=== PATIENT | female | born 2000 | race Caucasian/White ===

== ENCOUNTER 2018-02-26 15:10 | Observation (INO) | payer OTHER ==
[2018-02-26] MEDS ORDERED: ONDANSETRON HCL IV 4 MG/2 ML VIAL IV ONE (15:31)
[2018-02-26] MEDS ORDERED: 0.9 % SODIUM CHLORIDE 1,000 ML BAG IV ONE (15:31)
[2018-02-26 15:48] LABS: BASO % 0.2 % (0-6); EOS % 0.8 % (0-6); GRAN % 76.6 % (47-80); HEMOGLOBIN 10.6 gm/dl (11.6-16.0); LYMPH % 16.5 % (16-45); MEAN CELL VOLUME 91.9 fl (81-97); MEAN CORPUSCULAR HEMOGLOBIN 28.6 pg (27-33); MEAN CORPUSCULAR HGB CONC 31.2 g/dl (32-36); MEAN PLATELET VOLUME 10.3 fl (7.4-10.4); MONO % 5.9 % (0-9); PLATELET COUNT 308 K/uL (130-400); RED CELL DISTRIBUTION WIDTH 15.5 % (11.5-14.5); URINE APPEARANCE CLEAR; URINE BILIRUBIN NEGATIVE (NEGATIVE); URINE BLOOD NEGATIVE (NEGATIVE); URINE COLOR YELLOW; URINE GLUCOSE (UA) NEGATIVE (NEGATIVE); URINE KETONE NEGATIVE (NEGATIVE); URINE LEUKOCYTE ESTERASE NEGATIVE (NEGATIVE); URINE NITRITE NEGATIVE (NEGATIVE); URINE PROTEIN NEGATIVE (NEGATIVE); URINE UROBILINOGEN 0.2 E.U./dL (0.20 - 1.00); WHITE BLOOD COUNT W/O DIFF 12.7 K/uL (4.2-12.2)
[2018-02-26 15:59] LABS: BLOOD UREA NITROGEN 9 mg/dL (6-20); CREATININE 0.9 mg/dL (0.5-0.9)
[2018-02-26 16:00] LABS: TOTAL PROTEIN 7.1 g/dL (6.6-8.7)
[2018-02-26 16:02] LABS: GLUCOSE,RANDOM 85 mg/dL (74-109)
--- NOTE | 2018-02-26 16:03 | Emergency Department Record ---
History of Present Illness - General Chief Complaint: Abdominal Pain Stated Complaint: ABDOMINAL PAIN,NAUSEA, Time Seen by Provider: 02/26/18 15:25 Source: Patient, Family Mode of Arrival: Ambulatory Limitations: No limitations - History of Present Illness Initial Comments: pt had anorexia and nausea last night, then today developed rlq pain and vomited. pain gets worse w walking and eating Complaint: Abdominal pain Onset/Timin -: Days(s) Location: RLQ Severity: Moderate Severity scale (1-10): 7 Quality: Aching Consistency: Constant, Getting worse Improves With: Nothing Worsens With: Eating, Movement Associated Symptoms: Anorexia, Nausea, Vomiting - Related Data LMP (females 10-50): Last week Allergies Allergy/AdvReac Type Severity Reaction Status Date / Time nut - unspecified Allergy ANAPHYLAXIS Verified 02/26/18 15:42 Penicillins Allergy RASH Verified 02/26/18 15:42 Travel Screening - Travel/Exposure Within Last 30 Days Have you traveled within the last 30 days?: No - Travel/Exposure Within Last Year Have you traveled outside the [place] in the last year?: No - Additonal Travel Details Have you been exposed to anyone with a communicable illness?: No - Travel Symptoms Symptom Screening: None Review of Systems Reviewed: No additional complaints except as noted below Constitutional: Reports: As per HPI. Denies: Chills, Fever, Malaise, Night sweats, Weakness, Weight change Eyes: Reports: As per HPI. Denies: Eye discharge, Eye pain, Photophobia, Vision change ENT: Reports: As per HPI. Denies: Congestion, Dental pain, Ear pain, Epistaxis , Hearing loss, Throat pain Respiratory: Reports: As per HPI. Denies: Cough, Dyspnea, Hemoptysis, Stridor, Wheezes Cardiovascular: Reports: As per HPI. Denies: Arrhythmia, Chest pain, Dyspnea on exertion, Edema, Murmurs, Orthopnea, Palpitations, Paroxysmal nocturnal dyspnea, Rheumatic Fever, Syncope Endocrine: Reports: As per HPI. Denies: Fatigue, Heat or cold intolerance, Polydipsia, Polyuria Gastrointestinal: Reports: As per HPI. Denies: Abdominal pain, Constipation, Diarrhea, Hematemesis, Hematochezia, Melena, Nausea, Vomiting Genitourinary: Reports: As per HPI. Denies: Abnormal menses, Discharge, Dyspareunia, Dysuria, Frequency, Hematuria, Incontinence, Retention, Urgency Musculoskeletal: Reports: As per HPI. Denies: Arthralgia, Back pain, Gout, Joint swelling, Myalgia, Neck pain Skin: Reports: As per HPI. Denies: Bruising, Change in color, Change in hair/ nails, Lesions, Pruritus, Rash Neurological: Reports: As per HPI. Denies: Abnormal gait, Confusion, Headache, Numbness, Paresthesias, Seizure, Tingling, Tremors, Vertigo, Weakness Psychiatric: Reports: As per HPI. Denies: Anxiety, Auditory hallucinations, Depression, Homicidal thoughts, Suicidal thoughts, Visual hallucinations Hematological/Lymphatic: Reports: As per HPI. Denies: Anemia, Blood Clots, Easy bleeding, Easy bruising, Swollen glands Past Medical History - SOCIAL HISTORY Smoking Status: Never smoker Alcohol Use: None Drug Use: None - RESPIRATORY Hx Respiratory Disorders: No - CARDIOVASCULAR Hx Cardio Disorders: No - NEURO Hx Neuro Disorders: No - GI Hx GI Disorders: No - Hx Genitourinary Disorders: No - ENDOCRINE Hx Endocrine Disorders: No - MUSCULOSKELETAL Hx Musculoskeletal Disorders: No - PSYCH Hx Psych Problems: No - HEMATOLOGY/ONCOLOGY Hx Hematology/Oncology Disorders: No Family Medical History Any Significant Family History?: Yes Physical Exam - General General Appearance: Alert, Oriented x3, Cooperative, Mild distress - Head Head exam: Normal inspection - Eye Eye exam: Normal appearance, PERRL, EOMI Pupils: Normal accommodation - ENT ENT exam: Normal exam, Mucous membranes moist, Normal external ear exam, Normal orophraynx Ear exam: Normal external inspection. negative: External canal tenderness Nasal Exam: Normal inspection. negative: Discharge, Sinus tenderness Mouth exam: Normal external inspection, Tongue normal Teeth exam: Normal inspection. negative: Dental caries Throat exam: Normal inspection. negative: Tonsillar erythema, Tonsillar exudate - Neck Neck exam: Normal inspection, Full ROM. negative: Tenderness - Respiratory Respiratory exam: Normal lung sounds bilaterally. negative: Respiratory distress - Cardiovascular Cardiovascular Exam: Regular rate, Normal rhythm, Normal heart sounds - GI/Abdominal GI/Abdominal exam: Soft, Normal bowel sounds, Tenderness (rlq) - Rectal Rectal exam: Deferred - exam: Deferred - Extremities Extremities exam: Normal inspection, Full ROM, Normal capillary refill. negative: Tenderness - Back Back exam: Reports: Normal inspection, Full ROM. Denies: Muscle spasm, Rash noted, Tenderness - Neurological Neurological exam: Alert, CN II-XII intact, Normal gait, Oriented X3 - Psychiatric Psychiatric exam: Normal affect, Normal mood - Skin Skin exam: Dry, Intact, Normal color, Warm Course Vital Signs 02/26/18 15:13 Temperature 98.3 F Pulse Rate 100 H Respiratory 20 Rate Blood Pressure 138/85 Pulse Ox 97 Medical Decision Making - Lab Data Result diagrams: 02/26/18 15:40 02/26/18 15:40 Lab Results 02/26/18 02/26/18 Range/Units 15:40 15:40 WBC 12.7 H (4.2-12.2) K/uL RBC 3.70 L (3.80-5.40) M/uL Hgb 10.6 L (11.6-16.0) gm/dl Hct 34.0 L (35.0-47.0) % MCV 91.9 (81-97) fl MCH 28.6 (27-33) pg MCHC 31.2 L (32-36) g/dl RDW 15.5 H (11.5-14.5) % Plt Count 308 (130-400) K/uL MPV 10.3 (7.4-10.4) fl Gran % 76.6 (47-80) % Lymphocytes % 16.5 (16-45) % Monocytes % 5.9 (0-9) % Eosinophils % 0.8 (0-6) % Basophils % 0.2 (0-6) % Urine Color Yellow Urine Appearance Clear Urine pH 6.0 (5.0-8.0) Ur Specific [place] 1.020 (1.002-1.030) Urine Protein Negative (NEGATIVE) Urine Glucose (UA) Negative (NEGATIVE) Urine Ketones Negative (NEGATIVE) Urine Blood Negative (NEGATIVE) Urine Nitrite Negative (NEGATIVE) Urine Bilirubin Negative (NEGATIVE) Urine Urobilinogen 0.2 (0.20 - 1.00) E.U./dL Ur Leukocyte Esterase Negative (NEGATIVE) Disposition Disposition: Admit Clinical Impression: Acute appendicitis Qualifiers: Acute appendicitis type: unspecified acute appendicitis type Qualified Code(s) : K35.80 - Unspecified acute appendicitis Disposition: Still a Patient at [facility] Decision to Admit: Admit from ER Decision to Admit Date: 02/26/18 Decision to Admit Time: 19:55 Forms: Patient Portal Access Quality - Blood Pressure Screening Does Patient Have Any of the Following: No Blood Pressure Classification: Pre-Hypertensive BP Reading Systolic Measurement: 138 Diastolic Measurement: 85 Screening for High Blood Pressure: < Pre-Hypertensive BP, F/U Documented > [ G8950]
[2018-02-26 16:05] LABS: ALB/GLOB RATIO 1.3 (1.1-1.8); ALKALINE PHOSPHATASE 82 U/L (35-104); ALT/SGPT 14 U/L (<33); AST/SGOT 19 U/L (10.0-35.0)
[2018-02-26 16:10] LABS: HCG,QUALITATIVE URINE NEGATIVE (NEGATIVE)
[2018-02-26] MEDS ORDERED: KETOROLAC 30 MG/ML VIAL IVP ONE (19:31)
[2018-02-26] MEDS ORDERED: BUPIVACAINE 0.25% W/EPI MPF 30ML VIAL IVP ONE (20:24)
[2018-02-26] MEDS ORDERED: 0.9 % SODIUM CHLORIDE 1000ML 1,000 ML IV PRN (20:28)
[2018-02-26] MEDS ORDERED: ESCITALOPRAM 10 MG TABLET PO SCH (20:28)
[2018-02-26] MEDS ORDERED: HYDROMORPHONE HCL 2 MG/ML VIAL IV PRN (20:28)
[2018-02-26] MEDS ORDERED: ONDANSETRON HCL IV 4 MG/2 ML VIAL IVP PRN (20:28)
[2018-02-26 20:34] LABS: PROTHROMBIN TIME (PATIENT) 9.8 SECONDS (9.5-12.1)
[2018-02-26] MEDS ORDERED: ERTAPENEM SODIUM 1 G in 0.9 % SODIUM CHLORIDE 100ML 100 ML IVPB ONE (21:28)
[2018-02-26] MEDS: NORGESTIMATE ETHINYL ESTRADIOL PO SCH (22:35)
[2018-02-26] MEDS: LEXAPRO 20 MG PO SCH ×2 (22:38→23:00)
--- NOTE | 2018-02-27 07:30 | CT SCAN REPORT ---
EXAM: EMERGENCY CT OF THE ABDOMEN AND PELVIS WITH CONTRAST HISTORY: RIGHT LOWER QUADRANT ABDOMINAL PAIN FOR A DAY. TECHNIQUE: Axial CT scan of the abdomen and pelvis was performed following both oral and IV contrast administration. Please see the medical record for contrast specifics. A preliminary report was provided by [facility]. Comparison: CT of the abdomen and pelvis 11/20/13. FINDINGS: No calcified gallstones are seen within the gallbladder. No definite hepatic, splenic, adrenal, pancreatic, or renal mass identified. Oral contrast has passed throughout the small bowel into the cecum with no small bowel obstruction evident. The preliminary report provided by [facility] was that of acute appendicitis with the appendix measuring 11 mm proximally and 18 mm more distally. The images in the right lower quadrant are quite "noisy" and the anatomy is not ideally seen in the pelvis with the patient having relatively little adipose tissue to act as a natural contrast agent the loops of bowel. A normal appendix is not definitely visualized, and there is a rounded structure measuring up to about 18 mm that probably does correspond to a distended appendix although is not optimally seen as such. Correlation as to the degree of clinically suspected appendicitis is suggested. The lung bases are clear. No free intraperitoneal air or free intraperitoneal fluid identified. The bladder is relatively distended. Slight prominence of the renal collecting systems as well may just be related to the bladder distention. IMPRESSION: 1. APPEARANCE SUSPICIOUS FOR ACUTE APPENDICITIS. A NORMAL APPENDIX IS NOT CLEARLY SEEN. SOMEWHAT LIMITED VISUALIZATION OF THE ANATOMY IN THE RIGHT LOWER QUADRANT DUE TO VERY THIN BODY HABITUS AND RELATIVELY "NOISY" IMAGES, HOWEVER, AN APPEARANCE SUSPICIOUS FOR A DILATED APPENDIX IS VISUALIZED WELL. 2. BLADDER DISTENDED. SLIGHT PROMINENCE OF THE RENAL COLLECTING SYSTEMS BILATERALLY MAY JUST BE RELATED TO THIS BLADDER DISTENTION. JOB NUMBER: [id number] [facility]
[2018-02-27] MEDS: NORGESTIMATE ETHINYL ESTRADIOL PO SCH (09:43)
[2018-02-27] MEDS ORDERED: RINGERS SOLUTION,LACTATED 1,000 ML IV ONE (09:53)
[2018-02-27] MEDS ORDERED: MECLIZINE 25 MG TABLET PO ONE ×2 (09:58)
[2018-02-27] MEDS ORDERED: FAMOTIDINE 20MG TABLET PO ONE (10:00)
[2018-02-27] MEDS ORDERED: ACETAMINOPHEN 1,000 MG/100 ML BTL IVPB ONE (10:04)
[2018-02-27] MEDS ORDERED: METOCLOPRAMIDE 10 MG TABLET PO ONE (10:06)
[2018-02-27] MEDS ORDERED: HYDROCODONE/APAP 5/325MG TABLET PO PRN ×2 (16:33→16:34)
[2018-02-27] MEDS ORDERED: HYDROMORPHONE HCL 2 MG/ML VIAL IVP PRN (16:36)
[2018-02-27] MEDS ORDERED: ONDANSETRON HCL IV 4 MG/2 ML VIAL IVP PRN (16:37)
[2018-02-27] MEDS ORDERED: MIDAZOLAM HCL 2MG/2ML VIAL IV ONE (17:14)
[2018-02-27] MEDS ORDERED: PROPOFOL 10 MG/ML VIAL IV ONE (17:14)
[2018-02-27] MEDS ORDERED: NEOSTIGMINE 1 MG/1 ML,10ML VIAL IV ONE (17:14)
[2018-02-27] MEDS ORDERED: FENTANYL PF 100MCG/2ML VIAL IV ONE (17:14)
[2018-02-27] MEDS ORDERED: ROCURONIUM BROMIDE 50MG/5ML VIAL IV ONE (17:14)
[2018-02-27] MEDS ORDERED: SEVOFLURANE 250 ML INH ONE (17:14)
[2018-02-27] MEDS ORDERED: LIDOCAINE 2% MDV (20MG/ML) 20ML VIAL IV ONE (17:14)
[2018-02-27] MEDS ORDERED: GLYCOPYRROLATE 0.2 MG/ML ML IV ONE (17:14)
[2018-02-27] MEDS ORDERED: SUCCINYLCHOLINE 20 MG/ML 10ML IVP ONE (17:14)
[2018-02-27] MEDS ORDERED: KETOROLAC 30 MG/ML VIAL IVP ONE (17:14)
[2018-02-27] MEDS ORDERED: ONDANSETRON HCL IV 4 MG/2 ML VIAL IVP ONE (17:14)
[2018-02-27] MEDS ORDERED: LEXAPRO 20 MG PO SCH (22:00)
--- NOTE | 2018-02-28 12:31 | Operative Note ---
DATE OF SURGERY: 02/27/2018 Surgeon: Aiden Hodges DO PREOPERATIVE DIAGNOSIS: Acute appendicitis. POSTOPERATIVE DIAGNOSIS: Acute appendicitis. OPERATION: Laparoscopic appendectomy. Indication: The patient is an 16-year-old female who presented to the ER with pain in the right lower quadrant. Workup included CT scan and laboratory values. These did show findings consistent with appendicitis. We did discuss appendectomy. Risks, benefits, and alternatives were discussed. Risks include bleeding, infection, postop abscess formation, injury to underlying visceral structures. She understood this fully. Thereafter, consent was signed and questions answered. PROCEDURE: She was taken to the operating room and placed in the supine position. General anesthesia was administered per the department of anesthesia. The patient's abdomen was prepped and draped in the usual sterile fashion. Left arm was tucked to the side. The infraumbilical region was anesthetized with a total of 2 mL of 0.25% Sensorcaine with epinephrine. A 2 cm infraumbilical incision was made. This was carried down to the anterior rectus fascia. This was incised. Dawson clamps were placed on the fascial edges and brought up into the wound. Stay sutures of 0 Vicryl were placed. Posterior rectus sheath was identified and incised. The peritoneal cavity was entered bluntly. At this time, a 10 mm blunt Eileen port was placed. Adequate pneumoperitoneum established. Under direct visualization, additional 5 mm right subcostal and 5 mm suprapubic ports were placed. The patient was then rotated into Trendelenburg position with rotation to the left. The appendix was located and was lifted anteriorly. The mesoappendix was taken down serially with the Juan harmonic. Once the appendiceal base was reached, an Endo-RITA stapling device was used to transect the appendix off the base of the cecum. This was placed in an EndoCatch bag and brought out through the umbilicus port. The right lower quadrant was rechecked, found to be hemostatic. No bleeding, no bile leaking. Pelvis appeared normal. The rest of the external exam and small and large bowel appeared normal. At this time, patient leveled out and pneumoperitoneum was released. All ports were removed. The fascia was closed with 0 Vicryl in a [id number] fashion. The skin of all 3 ports was closed with 4-0 Vicryl. She was taken to the recovery room in satisfactory condition. FINDINGS ON SURGERY: Acute appendicitis without abscess or rupture. CC: SHELBIE Torre
--- NOTE | 2018-02-28 12:31 | History and Physical Report ---
DATE: 02/27/2018 ADMITTING DIAGNOSIS: Abdominal pain. HISTORY OF CHIEF COMPLAINT: The patient is a 17-year-old female who has had about a 2- to 3-hour history of abdominal pain. This was periumbilical and did settle in her right lower quadrant. This was accompanied by some nausea. She was seen in [facility] where a full workup was done. This did include laboratory values and CT scan. She had a mildly elevated white blood cell count. She had CT scan findings consistent with probably early acute appendicitis. PAST MEDICAL HISTORY: Negative for any significant illness. PAST SURGICAL HISTORY: Negative. CURRENT MEDICATIONS: None. ALLERGIES: PENICILLIN, NUTS. SOCIAL HISTORY: She denies any tobacco or alcohol usage. PHYSICAL EXAMINATION: VITAL SIGNS: Stable. She is afebrile. HEART: Regular rate and rhythm. LUNGS: Clear. ABDOMEN: Soft. There is right lower quadrant tenderness. DIAGNOSTIC DATA: I did review her imaging studies as well as laboratory values. IMPRESSION: Abdominal pain secondary to acute appendicitis. PLAN: We did discuss appendectomy. Risks, benefits, and alternatives were discussed. Risks include bleeding, infection, postop abscess formation, need for laparotomy. She understood this fully. ALEE
== END 2018-02-27 17:15 | disposition home or self-care (01) ==
LOC: ER 15:10 → MEDSURG 20:23
PROVIDERS: ADMIT Surgery; ATTEND Surgery
DX: K35.80 Unspecified acute appendicitis (principal); R11.0 Nausea; R10.31 Right lower quadrant pain
CPT/HCPCS: 44970; 00840; 99285 ×2; 96374; 96375; 96361; 85025; 85610; 80053; 81003; 81025; 74177; G0378 ×2; Q9967; J1335; J1885 ×2; J2405 ×2; J3010; C1776; J0330; J2710; J7030; J7120

== ENCOUNTER 2018-02-28 23:46 | Emergency (ER) | payer OTHER ==
[2018-03-01] MEDS ORDERED: ONDANSETRON HCL IV 4 MG/2 ML VIAL IV ONE (00:03)
[2018-03-01] MEDS ORDERED: SODIUM CHLORIDE 0.9% 500 ML IV ONE (00:03)
[2018-03-01] MEDS ORDERED: SUCRALFATE 1 G/10 ML UD PO ONE (00:04)
--- NOTE | 2018-03-01 00:05 | Emergency Department Record ---
History of Present Illness - General Chief Complaint: Abdominal Pain Stated Complaint: HAD AN APPENDECTOMY YESTERDAY, DONT FEEL WELL Time Seen by Provider: 02/28/18 23:57 Source: Patient Mode of Arrival: Ambulatory Limitations: No limitations - History of Present Illness Initial Comments: The patient is here due to not feeling well for 2-3 hours. She had her appendix removed yesterday here at [facility] and was discharged in the early evening. She was doing well until this evening when she began to have upper AP and heartburn with nausea. She did not vomit and decided to come to the ER for evaluation. MD Complaint: Abdominal pain Onset/Timin -: Hour(s) Location: Epigastric Radiation: None Severity scale (1-10): 5 Quality: Burning, Cramping Consistency: Constant Improves With: Nothing Worsens With: Rest Associated Symptoms: Nausea - Related Data LMP (females 10-50): Last week Allergies Allergy/AdvReac Type Severity Reaction Status Date / Time nut - unspecified Allergy ANAPHYLAXIS Verified 02/26/18 15:42 Penicillins Allergy RASH Verified 02/26/18 15:42 Travel Screening - Travel/Exposure Within Last 30 Days Have you traveled within the last 30 days?: No - Travel Symptoms Symptom Screening: None Review of Systems Constitutional: Denies: Chills, Fever Eyes: Denies: Eye discharge ENT: Denies: Congestion Respiratory: Denies: Cough, Dyspnea Past Medical History - SOCIAL HISTORY Smoking Status: Never smoker - RESPIRATORY Hx Respiratory Disorders: No - CARDIOVASCULAR Hx Cardio Disorders: No - NEURO Hx Neuro Disorders: No - GI Hx GI Disorders: No - Hx Genitourinary Disorders: No - ENDOCRINE Hx Endocrine Disorders: No - MUSCULOSKELETAL Hx Musculoskeletal Disorders: No - PSYCH Hx Psych Problems: Yes Hx Anxiety: Yes - HEMATOLOGY/ONCOLOGY Hx Hematology/Oncology Disorders: No Family Medical History Any Significant Family History?: Yes Family Hx Comment (NOT TO BE USED IN PLACE OF ITEMS BELOW): grandma brain aneurysm Physical Exam - General General Appearance: Alert, Oriented x3, Cooperative, No acute distress (The patient appears very comfortable in no distress and is very nontoxic in appearance.) - Head Head exam: Atraumatic, Normocephalic, Normal inspection - Eye Eye exam: Normal appearance, PERRL, EOMI - Neck Neck exam: Normal inspection, Full ROM. negative: Tenderness - Respiratory Respiratory exam: Normal lung sounds bilaterally. negative: Respiratory distress - Cardiovascular Cardiovascular Exam: Regular rate, Normal rhythm, Normal heart sounds - GI/Abdominal GI/Abdominal exam: Soft, Tenderness (There is very mild diffuse tenderness in all 4 quads and the epigastric area.). negative: Distended, Rebound, Rigid - Extremities Extremities exam: Normal inspection, Full ROM, Normal capillary refill. negative: Tenderness - Neurological Neurological exam: Alert, Normal gait. negative: Abnormal gait, Motor sensory deficit - Skin Skin exam: negative: Rash Course Vital Signs 02/28/18 23:51 Temperature 99.1 F Pulse Rate 79 Respiratory 18 Rate Blood Pressure 126/84 Pulse Ox 97 - Reevaluation(s) Reevaluation #1: The patient is feeling much better at this time. She denies any pain or discomfort and is ambulating normally. I did explain the lab results with the patient and family. I also did consult with Dr. Hodges and he does agree with the plan to discharge. The patient is to see him as previously scheduled and to return to the ER for any worsening symptoms. 03/01/18 01:21 Medical Decision Making - Lab Data Result diagrams: 03/01/18 00:15 03/01/18 00:15 Disposition Disposition: Discharge Clinical Impression: Post-op pain Disposition: Home, Self-Care Condition: (2) Stable Instructions: Acute Abdominal Pain (ED) Additional Instructions: Please continue the present discharge plan and use Maalox 30 mls 4 times a day for [address] Hodges as scheduled and return to the ER for any worsening symptoms. Forms: Patient Portal Access Time of Disposition: 01:20 Quality - Quality Measures Quality Measures: N/A - Blood Pressure Screening View Details: Yes Does Patient Have Any of the Following: No Blood Pressure Classification: Pre-Hypertensive BP Reading Systolic Measurement: 126 Diastolic Measurement: 84 Screening for High Blood Pressure: < Pre-Hypertensive BP, F/U Documented > [ G8950] Pre-Hypertensive Follow-up Interventions: Referral to alternative/primary care provider.
[2018-03-01 00:24] LABS: BASO % 0.4 % (0-6); EOS % 1.8 % (0-6); GRAN % 47.3 % (47-80); HEMATOCRIT 30.4 % (35.0-47.0); HEMOGLOBIN 9.9 gm/dl (11.6-16.0); LYMPH % 40.4 % (16-45); MEAN CELL VOLUME 91.6 fl (81-97); MEAN CORPUSCULAR HEMOGLOBIN 29.8 pg (27-33); MEAN CORPUSCULAR HGB CONC 32.6 g/dl (32-36); MEAN PLATELET VOLUME 10.2 fl (7.4-10.4); MONO % 10.1 % (0-9); PLATELET COUNT 269 K/uL (130-400); RED BLOOD COUNT 3.32 M/uL (3.80-5.40); RED CELL DISTRIBUTION WIDTH 15.2 % (11.5-14.5); WHITE BLOOD COUNT W/O DIFF 7.7 K/uL (4.2-12.2)
[2018-03-01 00:38] LABS: BILIRUBIN,TOTAL < 0.20 mg/dL (0.2-1.0); BLOOD UREA NITROGEN 9 mg/dL (6-20); CREATININE 0.7 mg/dL (0.5-0.9)
[2018-03-01 00:39] LABS: TOTAL PROTEIN 6.8 g/dL (6.6-8.7)
[2018-03-01 00:41] LABS: GLUCOSE,RANDOM 103 mg/dL (74-109)
[2018-03-01 00:43] LABS: ALT/SGPT 11 U/L (<33)
[2018-03-01 00:44] LABS: ALBUMIN 3.8 g/dL (4.0-5.0); ALKALINE PHOSPHATASE 75 U/L (35-104); AST/SGOT 18 U/L (10.0-35.0); LIPASE 30 U/L (13-60)
[2018-03-01 00:47] LABS: BILIRUBIN,DIRECT < 0.2 mg/dL (0-0.3)
== END 2018-03-01 01:25 | disposition home or self-care (01) ==
LOC: ER 23:46
DX: G89.18 Other acute postprocedural pain (principal); R10.13 Epigastric pain; R11.0 Nausea
CPT/HCPCS: 80048; 80076; 83690; 85025; 96374; 99284; J2405

== ENCOUNTER 2018-04-14 11:52 | Emergency (ER) | payer OTHER ==
--- NOTE | 2018-04-14 12:42 | Emergency Department Record ---
History of Present Illness - General Chief Complaint: Wound, check Stated Complaint: INCISION SWEEPING Time Seen by Provider: 04/14/18 11:57 Source: Patient, RN notes reviewed - History of Present Illness Initial Comments: small amount of bleeding from the umbilcal surgical site and it looks like a suture is working it's way out. Appendectomy sugery feb Dr. Hodges and eating withou difficult and no fever or chilles and eating and drinking well and no urination problems and normal BM's. Onset/Timin -: Week(s) Initial Visit For: Laceration Returns Today for: Wound recheck Symptoms Since Prior Visit: Worsening discharge - Related Data Allergies Allergy/AdvReac Type Severity Reaction Status Date / Time nut - unspecified Allergy ANAPHYLAXIS Verified 04/14/18 12:02 Penicillins Allergy RASH Verified 04/14/18 12:02 Travel Screening - Travel/Exposure Within Last 30 Days Have you traveled within the last 30 days?: No - Travel/Exposure Within Last Year Have you traveled outside the [place] in the last year?: No - Additonal Travel Details Have you been exposed to anyone with a communicable illness?: No - Travel Symptoms Symptom Screening: None Review of Systems Reviewed: No additional complaints except as noted below Constitutional: Reports: As per HPI. Denies: Chills, Fever, Malaise, Night sweats, Weakness, Weight change Eyes: Reports: As per HPI. Denies: Eye discharge, Eye pain, Photophobia, Vision change ENT: Reports: As per HPI. Denies: Congestion, Dental pain, Ear pain, Epistaxis , Hearing loss, Throat pain Respiratory: Reports: As per HPI. Denies: Cough, Dyspnea, Hemoptysis, Stridor, Wheezes Cardiovascular: Reports: As per HPI. Denies: Arrhythmia, Chest pain, Dyspnea on exertion, Edema, Murmurs, Orthopnea, Palpitations, Paroxysmal nocturnal dyspnea, Rheumatic Fever, Syncope Endocrine: Reports: As per HPI. Denies: Fatigue, Heat or cold intolerance, Polydipsia, Polyuria Gastrointestinal: Reports: As per HPI. Denies: Abdominal pain, Constipation, Diarrhea, Hematemesis, Hematochezia, Melena, Nausea, Vomiting Genitourinary: Reports: As per HPI. Denies: Abnormal menses, Discharge, Dyspareunia, Dysuria, Frequency, Hematuria, Incontinence, Retention, Urgency Musculoskeletal: Reports: As per HPI. Denies: Arthralgia, Back pain, Gout, Joint swelling, Myalgia, Neck pain Skin: Reports: As per HPI. Denies: Bruising, Change in color, Change in hair/ nails, Lesions, Pruritus, Rash Neurological: Reports: As per HPI. Denies: Abnormal gait, Confusion, Headache, Numbness, Paresthesias, Seizure, Tingling, Tremors, Vertigo, Weakness Psychiatric: Reports: As per HPI. Denies: Anxiety, Auditory hallucinations, Depression, Homicidal thoughts, Suicidal thoughts, Visual hallucinations Hematological/Lymphatic: Reports: As per HPI. Denies: Anemia, Blood Clots, Easy bleeding, Easy bruising, Swollen glands Past Medical History - SOCIAL HISTORY Smoking Status: Never smoker Alcohol Use: None Drug Use: None - RESPIRATORY Hx Respiratory Disorders: No - CARDIOVASCULAR Hx Cardio Disorders: No - NEURO Hx Neuro Disorders: No - GI Hx GI Disorders: No - Hx Genitourinary Disorders: No - ENDOCRINE Hx Endocrine Disorders: No - MUSCULOSKELETAL Hx Musculoskeletal Disorders: No - PSYCH Hx Psych Problems: Yes Hx Anxiety: Yes - HEMATOLOGY/ONCOLOGY Hx Hematology/Oncology Disorders: No Family Medical History Any Significant Family History?: Yes Family Hx Comment (NOT TO BE USED IN PLACE OF ITEMS BELOW): grandma brain aneurysm Physical Exam - General General Appearance: Alert, Oriented x3, Cooperative, No acute distress - Head Head exam: Normal inspection - Eye Eye exam: Normal appearance, PERRL Pupils: Normal accommodation - ENT ENT exam: Normal exam, Mucous membranes moist, Normal external ear exam, Normal orophraynx, TM's normal bilaterally Ear exam: Normal external inspection. negative: External canal tenderness Nasal Exam: Normal inspection. negative: Discharge, Sinus tenderness Mouth exam: Normal external inspection, Tongue normal Teeth exam: Normal inspection. negative: Dental caries Throat exam: Normal inspection. negative: Tonsillar erythema, Tonsillar exudate - Neck Neck exam: Normal inspection, Full ROM. negative: Tenderness - Respiratory Respiratory exam: Normal lung sounds bilaterally. negative: Respiratory distress - Cardiovascular Cardiovascular Exam: Regular rate, Normal rhythm, Normal heart sounds - GI/Abdominal GI/Abdominal exam: Soft, Normal bowel sounds. negative: Tenderness - Rectal Rectal exam: Deferred - exam: Deferred - Extremities Extremities exam: Normal inspection, Full ROM, Normal capillary refill. negative: Tenderness - Back Back exam: Reports: Normal inspection, Full ROM. Denies: Muscle spasm, Rash noted, Tenderness - Neurological Neurological exam: Alert, Normal gait, Oriented X3, Reflexes normal - Psychiatric Psychiatric exam: Normal affect, Normal mood - Skin Skin exam: Dry, Intact, Normal color, Warm, Other (small drop of bllod at the umbilical lap surgery site and it appears a suture is working it's way out.) Course Vital Signs 04/14/18 12:03 Temperature 98.3 F Pulse Rate 82 Respiratory 16 Rate Blood Pressure 119/77 Pulse Ox 98 Disposition Clinical Impression: Postoperative bleeding from incision Disposition: Home, Self-Care Condition: (1) Good Instructions: Wound Healing and Your Diet (ED) Additional Instructions: follow up with family practice provider who is taking over for Marissa Hurst next week. clean area daily and put neosporin ointment on once a day Time of Disposition: 12:42 Quality - Quality Measures Quality Measures: N/A - Blood Pressure Screening Does Patient Have Any of the Following: No Blood Pressure Classification: Normal BP Reading Systolic Measurement: 119 Diastolic Measurement: 77 Screening for High Blood Pressure: < Normal BP, F/U Not Required > [G8783]
== END 2018-04-14 13:07 | disposition home or self-care (01) ==
LOC: ER 11:52
DX: K91.840 Postprocedural hemorrhage of a digestive system organ or structure following a digestive system procedure (principal); Y83.8 Other surgical procedures as the cause of abnormal reaction of the patient, or of later complication, without mention of misadventure at the time of the procedure; Y73.3 Surgical instruments, materials and gastroenterology and urology devices (including sutures) associated with adverse incidents
CPT/HCPCS: 99282